=== PATIENT | female | born 1965 | race Caucasian/White ===

== ENCOUNTER 2017-10-12 01:25 | Observation (INO) | payer OTHER ==
[~2017-10-12] VITALS: Ht 172.7 cm; Wt 87.1 kg
[~2017-10-12 01:25] MED LIST: ANTIHISTAMINE25 M2 PO; ASPIRIN325 MG PO; HYDROCODON-ACE1 EAC7 PO; IRON325 M1 PO
[2017-10-12 02:30] LABS: HEMOGLOBIN 12.2 G/DL (11.9-15.5); MCH 29.8 PG (29.0-34.0); MCHC 33.9 G/DL (30.0-36.0); PLATELET COUNT 289 K/uL (156-360); RBC DIS.WIDTH-CV 12.6 % (11.8-14.6); RBC DIS.WIDTH-SD 40.4 % (39-53); RED BLOOD COUNT 4.09 M/uL (3.80-5.20); WHITE BLOOD COUNT 5.2 K/uL (4.1-10.2)
[2017-10-12 02:39] LABS: ALBUMIN 3.9 g/dL (3.2-4.8); CHLORIDE 106 mEq/L (99-109); POTASSIUM 3.5 mEq/L (3.7-5.4); SODIUM 135 mEq/L (136-147)
[2017-10-12 02:41] LABS: GLUCOSE 99 mg/dL (70-99)
[2017-10-12 02:42] LABS: TOTAL PROTEIN 6.6 g/dL (6.4-8.3)
[2017-10-12 02:43] LABS: TOTAL BILIRUBIN 0.4 mg/dL (0.0-1.0)
[2017-10-12 02:45] LABS: ALKALINE PHOSPHATASE 64 IU/L (3-129); CREATININE 0.8 mg/dL (0.6-1.3); GFR ESTIMATE (CALCULATED) > 59 mL/min/
[2017-10-12 02:46] LABS: UREA NITROGEN (BUN) 19 mg/dL (9-23)
[2017-10-12 02:47] LABS: AST (GOT) 17 IU/L (2-34); DIRECT BILIRUBIN 0.1 mg/dL (0.0-0.3)
[2017-10-12 02:48] LABS: ALT (GPT) 17 IU/L (3-49)
[2017-10-12 02:49] LABS: LIPASE 23 U/L (1.0-51.0)
[2017-10-12 02:51] LABS: TROP-I INTERPRETATION NEGATIVE; TROPONIN-I < 0.01 ng/mL (0.0-0.30)
[2017-10-12 06:09] VITALS: BP 146/82
[2017-10-12 07:20] VITALS: BP 141/78
[2017-10-12 09:03] LABS: TROP-I INTERPRETATION NEGATIVE; TROPONIN-I < 0.01 ng/mL (0.0-0.30)
[2017-10-12] MEDS ORDERED: ATORVASTATIN CA40 MG PO (10:21)
[2017-10-12] MEDS ORDERED: AZOR 5/20 MG1 TABLET PO (10:22)
[2017-10-12 11:09] VITALS: BP 174/86
[2017-10-12 14:58] LABS: TROP-I INTERPRETATION NEGATIVE; TROPONIN-I < 0.01 ng/mL (0.0-0.30)
[2017-10-12 15:05] LABS: HDL CHOLESTEROL 53 MG/DL (Desirable>=50); LDL CHOLESTEROL 178 mg/dL (Desirable<100); NON-HDL CHOLESTEROL 194 mg/dL (Desirable<160); TOTAL CHOLESTEROL 247 mg/dL (Desirable<200); TRIGLYCERIDES 79 MG/DL (Normal: <150)
== END 2017-10-12 15:13 | disposition home or self-care (01) ==
LOC: EME → EDBD 01:25 → EDOF 04:41 → ENRESERV 04:44 → 4SOUTH 05:57
PROVIDERS: Hospitalist; Physician Assistant
DX: R07.9 Chest pain, unspecified (principal); E87.6 Hypokalemia; I10 Essential (primary) hypertension; E78.5 Hyperlipidemia, unspecified; Z82.49 Family history of ischemic heart disease and other diseases of the circulatory system; R20.0 Anesthesia of skin; R06.02 Shortness of breath; M25.512 Pain in left shoulder; D64.9 Anemia, unspecified; Z79.82 Long term (current) use of aspirin
CPT/HCPCS: 71046; 71275; 80048; 80061; 80076; 83690; 84484; 85027; 93005; 99281; 99285; G0378; J7030